=== PATIENT | female | born 1995 | race American Indian/Alaskan Native ===

== ENCOUNTER 2017-10-21 09:02 | Emergency (ER) | payer OTHER ==
[2017-10-21 09:42] VITALS: BP 115/75; PULSE 79; RESP 18; TEMP 98; O2SAT 100
[2017-10-21] MEDS ORDERED: cefTRIAXone (Rocephin) 250 mg Inj IM ONE (10:15)
--- NOTE | 2017-10-21 10:15 | ED PDOC ---
HPI: Abdomen Time Seen by Provider: 10/21/17 10:13 Chief Complaint (Nursing): Abdominal Pain Chief Complaint (Provider): ABDOMINAL PAIN History Per: Patient (22 Y/O FEMALE HERE FOR ABDOMINAL PAIN NOTED YESTERDAY. STATES SHE WAS TOLD BY HER BOYFRIEND THAT HE WAS POSITIVE FOR AND TREATED FOR SYPHILIS/GONORRHEA. NOTES THAT SHE STARTED HER MENSTRUAL CYCLE TODAY AND ATTRIBUTES ABD PAIN TO THIS. DENIES ANY DYSURIA/URINARY FREQUENCY/FEVERS/ CHILLS.) Past Medical History Reviewed: Historical Data, Nursing Documentation, Vital Signs Vital Signs: Last Vital Signs Temp 98 F 10/21/17 09:37 Pulse 79 10/21/17 09:37 Resp 18 10/21/17 09:37 BP 115/75 10/21/17 09:37 Pulse Ox 100 10/21/17 10:15 - Family History Family History: States: No Known Family Hx - Allergies Allergies/Adverse Reactions: Allergies Allergy/AdvReac Type Severity Reaction Status Date / Time No Known Allergies Allergy Verified 10/21/17 09:37 Review of Systems ROS Statement: Except As Marked, All Systems Reviewed And Found Negative Gastrointestinal: Positive for: Abdominal Pain Genitourinary Female: Positive for: Vaginal Bleeding Physical Exam - Reviewed Nursing Documentation Reviewed: Yes Vital Signs Reviewed: Yes - Physical Exam Appears: Positive for: Well, Non-toxic, No Acute Distress Head Exam: Positive for: ATRAUMATIC, NORMAL INSPECTION, NORMOCEPHALIC Skin: Positive for: Normal Color, Warm, DRY Eye Exam: Positive for: EOMI, Normal appearance, PERRL ENT: Positive for: Normal ENT Inspection Neck: Positive for: Normal, Painless ROM Cardiovascular/Chest: Positive for: Regular Rate, Rhythm Respiratory: Positive for: CNT, Normal Breath Sounds Gastrointestinal/Abdominal: Positive for: Normal Exam, Bowel Sounds, Soft Pelvic Exam: Positive for: External Exam Normal, Speculum Exam Normal, Bimanual Exam Normal, No Cerv. Motion Tender (NO CMT.), Active Bleeding. Negative for: Discharge Back: Positive for: Normal Inspection Extremity: Positive for: Normal ROM Neurologic/Psych: Positive for: Alert, Oriented - ECG O2 Sat by Pulse Oximetry: 100 - Progress ED Course And Treament: ROCEPHIN 250 MG IM X 1 DOSE ZITHROMAX 1 GM PO Disposition - Clinical Impression Clinical Impression: STD exposure - Patient ED Disposition Is Patient to be Admitted: No - Disposition Referrals: Provider AMADOR, [Primary Care Provider] - [facility] [Outside] Disposition: Routine/Home Disposition Time: 10:33 Condition: FAIR Additional Instructions: PLEASE F/U WITH [facility] FOR FURTHER STD TESTING Instructions: Screening for Sexually Transmitted Infections Forms: [employer] (Slovenian)
[2017-10-21 10:37] LABS: SQUAMOUS EPITHIAL 7 /hpf (0-5); URINE BACTERIA RARE (<OCC); URINE BILIRUBIN NEGATIVE (NEGATIVE); URINE BLOOD NEGATIVE (NEGATIVE); URINE CLARITY SLIGHTY-CLOUDY (Clear); URINE COLOR YELLOW (YELLOW); URINE GLUCOSE (UA) NEG (Normal); URINE LEUKOCYTE ESTERASE NEG Leu/uL (Negative); URINE NITRATE NEGATIVE (NEGATIVE); URINE PROTEIN NEGATIVE (NEGATIVE)
[2017-10-21] MEDS ORDERED: cefTRIAXone (Rocephin) 250 mg Inj ONE (11:03)
== END 2017-10-21 11:20 | disposition home or self-care (01) ==
LOC: SUPCPDRO 09:02 → H.ER 09:02
DX: Z20.2 Contact with and (suspected) exposure to infections with a predominantly sexual mode of transmission (principal)
CPT/HCPCS: 81003; 81025; 86592; 87086; 87491; 87591; 96372; 99283; J0696